=== PATIENT | female | born 1960 | race Caucasian/White ===

== ENCOUNTER 2017-05-10 12:12 | Emergency (ER) | payer SELFPAY ==
[2017-05-10 12:24] VITALS: BMI 27.4
[2017-05-10 12:27] VITALS: RESP 18; TEMP 97.7; O2SAT 99
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
--- NOTE | 2017-05-10 14:02 | RAD ---
PROCEDURE: Radiographs of the Left Shoulder HISTORY: shoulder injury COMPARISON: No prior. FINDINGS: BONES: Normal. No fracture. JOINTS: Normal. Glenohumeral and acromioclavicular joints preserved. No osteoarthritis. SOFT TISSUES: Normal. OTHER FINDINGS: None. IMPRESSION: Normal radiographs of the left shoulder.
[2017-05-10 14:12] VITALS: BP 122/79; PULSE 66
== END 2017-05-10 14:11 | disposition home or self-care (01) ==
LOC: C.ER 12:12
DX: S46.912A Strain of unspecified muscle, fascia and tendon at shoulder and upper arm level, left arm, initial encounter (principal); S40.012A Contusion of left shoulder, initial encounter; W00.0XXA Fall on same level due to ice and snow, initial encounter; E03.9 Hypothyroidism, unspecified